=== PATIENT | female | born 1995 | race Caucasian/White ===

== ENCOUNTER 2021-11-02 17:41 | Inpatient (IN) | payer OTHER ==
[~2021-11-02] VITALS: Ht 170.2 cm; Wt 93.9 kg
[2021-11-02] MEDS ORDERED: DINOPROSTONE 10 MG SUPP VG ONE (18:00)
[2021-11-02] MEDS ORDERED: TERBUTALINE SULFATE 1 MG/ML VIAL SUBCUT ONE (18:00)
[2021-11-02] MEDS ORDERED: OXYTOCIN/0.9 % SODIUM CHLORIDE 1,000 ML IV SCH (18:00)
[2021-11-02 18:10] VITALS: BP_SYST 123
[2021-11-02 18:40] LABS: BASOPHILS % (AUTO) 0.2 % (0.0-2.0); EOSINOPHILS # (AUTO) 0.1 K/uL (0.0-0.4); HEMATOCRIT 32.9 % (36-48); LYMPHOCYTES # (AUTO) 1.3 K/uL (1.0-5.5); LYMPHOCYTES % (AUTO) 17.4 % (20.5-51.5); MEAN CORPUSCULAR HEMOGLOBIN 28 pg (27-31); MEAN CORPUSCULAR HGB CONC 34 % (32-36); MEAN CORPUSCULAR VOLUME 83 fL (79.0-98.0); MONOCYTES # (AUTO) 0.5 K/uL (0.0-1.0); MONOCYTES % (AUTO) 6.4 % (1.7-9.3); NEUTROPHILS # (AUTO) 5.6 K/uL (1.8-7.7); PLATELET COUNT (AUTO) 163 K/uL (130-430); RED BLOOD CELL COUNT(AUTO) 3.96 MIL/uL (4.2-6.2); RED CELL DISTRIBUTION WIDTH 14.2 % (9.0-15.0); WHITE BLOOD COUNT (AUTO) 7.5 K/uL (4.8-10.8)
[2021-11-03] MEDS: NALBUPHINE HCL 10 MG/ML AMP IVP PRN ×4 (00:30→06:49)
[2021-11-03] MEDS: LR 1,000 ML IV SCH ×2 (06:50→08:49)
[2021-11-03] MEDS ORDERED: LIGHT MINERAL OIL 10 ML VIAL MC ONE (08:10)
[2021-11-03] MEDS ORDERED: NALOXONE HCL 0.4 MG/ML AMP (NARCAN) ONE (08:10)
[2021-11-03] MEDS ORDERED: LIDOCAINE PF 1% 30ML(POUR BTL) INJ ONE (08:10)
[2021-11-03] MEDS ORDERED: ePHEDrine sulfate 50 MG/ML VIAL IVP PRN ×3 (08:15)
[2021-11-03] MEDS ORDERED: LR 500 ML IV ONE ×3 (08:15)
[2021-11-03] MEDS ORDERED: FENT2mCg/mL-ROPIVA0.2%/NS EPID 200 ML EP SCH (08:15)
[2021-11-03] MEDS ORDERED: ROPIVACAINE HCL/PF 0.2% 200 ML ONE (08:47)
[2021-11-03] MEDS ORDERED: fentaNYL CITRATE/PF 100 MCG/2 ML AMP ONE (08:47)
[2021-11-03] MEDS ORDERED: ROPIVACAINE 40 MG/20 ML AMP EP ONE (10:35)
[2021-11-03] MEDS ORDERED: OXYTOCIN/0.9 % SODIUM CHLORIDE 1,000 ML IV SCH ×2 (15:45→19:30)
[2021-11-03] MEDS ORDERED: CEFAZOLIN 2 GM IVPB PREMIX 50 ML IV ONE (17:15)
[2021-11-03] MEDS ORDERED: PROPOFOL 200MG/ 20ML VIAL (DIPRIVAN) IV ONE (18:10)
[2021-11-03] MEDS ORDERED: LR 1,000 ML IV.SOLN IV ONE (18:10)
[2021-11-03] MEDS ORDERED: NS IRRIG SOLN 1000 ML IR ONE (18:10)
[2021-11-03] MEDS ORDERED: MORPHINE SULFATE 10MG/10ML PF AMP ONE (18:10)
[2021-11-03] MEDS ORDERED: EPINEPHrine HCL 1 MG/ML VIAL ONE (18:10)
[2021-11-03] MEDS ORDERED: MIDAZOLAM HCL 2 MG/2 ML VIAL (VERSED) ONE (18:10)
[2021-11-03] MEDS ORDERED: ONDANSETRON HCL 4 MG/2 ML VIAL IVP PRN ×2 (18:30)
[2021-11-03] MEDS ORDERED: NALBUPHINE HCL 10 MG/ML AMP IVP PRN (18:30)
[2021-11-03] MEDS ORDERED: NALOXONE HCL 0.4 MG/ML AMP (NARCAN) IVP PRN ×3 (18:30→19:30)
[2021-11-03] MEDS ORDERED: KETOROLAC TROMETHAMINE 60 MG/2 ML VIAL IM PRN (18:30)
[2021-11-03] MEDS ORDERED: fentaNYL CITRATE/PF 100 MCG/2 ML AMP IVP PRN ×2 (18:30)
[2021-11-03] MEDS ORDERED: DIPHENHYDRAMINE INJ 50 MG/ML VIAL IVP PRN (18:30)
[2021-11-03] MEDS ORDERED: MORPHINE SULFATE 10MG/10ML PF AMP EP SCH (18:30)
[2021-11-03] MEDS ORDERED: METOCLOPRAMIDE HCL 10 MG/2 ML VIAL IVP PRN (18:30)
[2021-11-03 19:18] VITALS: BP_SYST 112
[2021-11-03] MEDS ORDERED: SIMETHICONE 80 MG TAB.CHEW PO PRN (19:30)
[2021-11-03] MEDS ORDERED: TEMAZEPAM 15 MG CAPSULE PO PRN (19:30)
[2021-11-03] MEDS ORDERED: HYDROcodone/ACETAMIN 5-325 MG TAB (NORCO/ VICODIN) PO PRN (19:30)
[2021-11-03] MEDS ORDERED: OXYCODONE/ACETAMINOPHEN 5-325 TABLET PO PRN (19:30)
[2021-11-03] MEDS ORDERED: DIPH-TET-PERTUS Vaccine 0.5 ML VIAL (ADACEL) I.M. PRN (19:30)
[2021-11-03] MEDS ORDERED: LR 1,000 ML IV SCH (19:30)
[2021-11-03] MEDS ORDERED: ANUSOL 1 EA SUPP.RECT (PREPARATION H) RC PRN (19:30)
[2021-11-03] MEDS ORDERED: MEASLES,MUMPS&RUBELLA VACC/PF 12500 UNIT/0.5 ML VIAL SUBQ PRN (19:30)
[2021-11-03] MEDS ORDERED: BISACODYL 10 MG/SUPPOSITORY RC PRN (19:30)
[2021-11-03] MEDS ORDERED: RHO(D) IMMUNE GLOBULIN/MALTOSE 1500 UNITS/1.3 ML (WINHRO) IM PRN (19:30)
[2021-11-03] MEDS ORDERED: LANOLIN 7 GM OINT. TP PRN (19:30)
[2021-11-03] MEDS: DOCUSATE SODIUM 100 MG CAPSULE PO SCH (21:00)
[2021-11-03] MEDS ORDERED: SENNOSIDES/DOCUSATE SODIUM 1 TAB TABLET(SENOKOT-S) PO SCH (21:00)
[2021-11-04] MEDS: CEFAZOLIN 1 GM IVPB PREMIX 50 ML IV SCH ×3 (00:12→12:32)
[2021-11-04] MEDS: ACETAMINOPHEN I.V. 1000 MG 100 ML IV SCH ×4 (03:06→20:06)
[2021-11-04] MEDS: KETOROLAC TROMETHAMINE 30 MG VIAL IVP SCH ×3 (06:05→17:52)
[2021-11-04 07:00] LABS: BASOPHILS % (AUTO) 0.2 % (0.0-2.0); EOSINOPHILS % (AUTO) 0.3 % (0.0-4.0); HEMATOCRIT 28.6 % (36-48); HEMOGLOBIN 9.8 g/dL (12.0-16.0); LYMPHOCYTES # (AUTO) 1.3 K/uL (1.0-5.5); LYMPHOCYTES % (AUTO) 13.7 % (20.5-51.5); MEAN CORPUSCULAR HEMOGLOBIN 29 pg (27-31); MEAN CORPUSCULAR HGB CONC 34 % (32-36); MEAN CORPUSCULAR VOLUME 84 fL (79.0-98.0); MONOCYTES # (AUTO) 0.7 K/uL (0.0-1.0); MONOCYTES % (AUTO) 7.1 % (1.7-9.3); NEUTROPHILS # (AUTO) 7.5 K/uL (1.8-7.7); NEUTROPHILS % (AUTO) 78.7 % (40.0-70.0); PLATELET COUNT (AUTO) 157 K/uL (130-430); RED BLOOD CELL COUNT(AUTO) 3.43 MIL/uL (4.2-6.2); RED CELL DISTRIBUTION WIDTH 14.8 % (9.0-15.0); WHITE BLOOD COUNT (AUTO) 9.6 K/uL (4.8-10.8)
[2021-11-04] MEDS: DOCUSATE SODIUM 100 MG CAPSULE PO SCH (09:20)
[2021-11-05] MEDS: KETOROLAC TROMETHAMINE 30 MG VIAL IVP SCH (00:10)
[2021-11-05] MEDS: DOCUSATE SODIUM 100 MG CAPSULE PO SCH ×2 (09:09→21:08)
--- NOTE | 2021-11-05 12:07 | NUR ---
Census Taker QUALITY CONTROL ENGINEERING TECHNICIAN received a referral to see new mom in OB for Anxiety and Post Depression. QUALITY CONTROL ENGINEERING TECHNICIAN introduced self to pt and of three years, Shane Medley. Both parents were staring at and admiring their newly born baby (b. Tue. [birth year]), Veronika. QUALITY CONTROL ENGINEERING TECHNICIAN gave them a business card. Parents were calm and agreeable to this interview. Pt. said the went well and baby has not issues. QUALITY CONTROL ENGINEERING TECHNICIAN shared the reason for the consult and began the interview. 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 Pt. currently is working on her Marriage and Family Therapy license. The only stressor she identified is her brother who is suffering from addiction, but mom said her and have boundaries and will not allow her brother to be around their baby. Parents both stated they have everything they need for the baby including two cars to get to appointments, car seats etc. This is both parents first baby. Re. if the was planned Pt. stated it was not but because she went of her control, both her and knew she could get . QUALITY CONTROL ENGINEERING TECHNICIAN asked if mom had ever been diagnosed with anxiety or depression. Pt. stated she feels anxious or depressed at times and she has a therapist for the past couple of years. Pt. stated she sees her therapist once every two weeks. Pt finds this helpful. QUALITY CONTROL ENGINEERING TECHNICIAN asked pt if she had ever felt suicidal. Pt stated when she was in high school she did not have a plan. Pt. stated she just felt like she did not want to be around. When asked if she had ever been hospitalized, pt. stated when she was in high school, she suffered from a panic attack and did not know what it was. To help her,pt. stated she reaches out for support. QUALITY CONTROL ENGINEERING TECHNICIAN was happy to hear pt is actively seeing a therapist. QUALITY CONTROL ENGINEERING TECHNICIAN also shared some other techniques like the Breath kira. or diming the lights with a romero playing, getting out for some fresh air. Pt. said that will be helpful. Pt. denied feeling suicidal today. When asked , Pt. stated she has a large support system consisting of family on both her side and her husbands side. Pt. was welcoming of various resources including a virtual post group, Wic, a packet for new moms, some hotline phone numbers. When asked if SW could make a referral for her, to the "[facility]", Pt stated she did not feel she needed it because of her strong support system. Pt and her did not have any further questions. QUALITY CONTROL ENGINEERING TECHNICIAN will remain available as needed.
[2021-11-05] MEDS: IBUPROFEN 600 MG TABLET PO SCH ×2 (13:53→17:44)
[2021-11-05] MEDS: OXYCODONE/ACETAMINOPHEN *10*mg/325 mg TABLET PO PRN ×2 (16:55→21:08)
[2021-11-05] MEDS ORDERED: PERC10 PO (20:57)
== END 2021-11-05 21:35 | disposition home or self-care (01) | DRG 787 ==
LOC: SPU 17:41
PROVIDERS: ADMIT Specialist; ATTEND Specialist
PROC: 3E0P7VZ Introduction of Hormone into Female Reproductive, Via Natural or Artificial Opening (ICD-10-PCS; 2021-11-02)
PROC: 10D00Z1 Extraction of Products of Conception, Low, Open Approach (ICD-10-PCS; principal; 2021-11-03 18:20)
DX: O48.0 Post-term pregnancy (principal); D62 Acute posthemorrhagic anemia; O36.63X0 Maternal care for excessive fetal growth, third trimester, not applicable or unspecified; O62.0 Primary inadequate contractions; Z37.0 Single live birth; Z20.822 Contact with and (suspected) exposure to COVID-19; Z3A.40 40 weeks gestation of pregnancy
CPT/HCPCS: 36415; 81002; 85025; 86592; 86886; 86900; 86901; 94760; J0131; J0171; J0690; J1200; J1885; J2001; J2274; J2300; J2310; J2590; J2704; J2795; J3010; J3465; J7120